=== PATIENT | female | born 1975 | race Caucasian/White ===

== ENCOUNTER 2017-03-28 19:42 | Emergency (ER) | payer MEDICAID ==
[~2017-03-28] VITALS: Ht 154.9 cm; Wt 77.1 kg
[2017-03-28 19:53] VITALS: BP 140/68
[2017-03-28] MEDS ORDERED: IBUPROFEN 600 MG TAB PO ONE ×2 (21:00→21:15)
== END 2017-03-28 21:01 | disposition home or self-care (01) ==
LOC: ER 19:42
DX: S62.610A Displaced fracture of proximal phalanx of right index finger, initial encounter for closed fracture (principal); S93.402A Sprain of unspecified ligament of left ankle, initial encounter; M77.32 Calcaneal spur, left foot; W31.89XA Contact with other specified machinery, initial encounter; Y93.89 Activity, other specified; Y92.89 Other specified places as the place of occurrence of the external cause; Y99.8 Other external cause status
CPT/HCPCS: 29130; 73130; 73610